=== PATIENT | male | born 1985 | race Hispanic/Latino ===

== ENCOUNTER 2019-06-08 18:52 | Emergency (ER) | payer SELFPAY ==
[2019-06-09] MEDS ORDERED: IBUPROFEN 600 MG TAB PO ONE (01:13)
--- NOTE | 2019-06-09 01:26 | Emergency Department Report ---
ED ENT HPI - General Chief complaint: Sore Throat Stated complaint: THROAT PAIN/JAW PAIN Time Seen by Provider: 06/09/19 01:12 Source: patient Mode of arrival: Ambulatory Limitations: No Limitations - History of Present Illness Initial comments: 34-year-old male presents to the emergency room for throat pain and jaw pain since . Patient reports that he feels like he has swelling to his right tonsil. Patient also reports he knows he has a bad tooth in his right jaw. Patient reports the pain 6 out of 10. MD complaint: tooth pain Onset/Timin -: days(s) Location: tooth # (32) Severity scale (0 -10): 6 Quality: aching, sharp Consistency: constant Improves with: none Worsens with: movement Context- Dental: history of dental caries, poor dental care - Related Data Previous Rx's Medication Instructions Recorded Last Taken Type Clindamycin [Clindamycin CAP] 300 mg PO Q8H #30 cap 06/09/19 Unknown Rx Ibuprofen [Motrin 600 MG tab] 600 mg PO Q8H PRN #30 tablet 06/09/19 Unknown Rx Allergies Allergy/AdvReac Type Severity Reaction Status Date / Time No Known Allergies Allergy Unverified 06/09/19 01:13 ED Dental HPI - General Chief complaint: Sore Throat Stated complaint: THROAT PAIN/JAW PAIN Time Seen by Provider: 06/09/19 01:12 Source: patient Mode of arrival: Ambulatory Limitations: No Limitations - Related Data Previous Rx's Medication Instructions Recorded Last Taken Type Clindamycin [Clindamycin CAP] 300 mg PO Q8H #30 cap 06/09/19 Unknown Rx Ibuprofen [Motrin 600 MG tab] 600 mg PO Q8H PRN #30 tablet 06/09/19 Unknown Rx Allergies Allergy/AdvReac Type Severity Reaction Status Date / Time No Known Allergies Allergy Unverified 06/09/19 01:13 ED Review of Systems ROS: Stated complaint: THROAT PAIN/JAW PAIN Other details as noted in HPI ED Past Medical Hx - Past Medical History Previous Medical History?: No - Surgical History Past Surgical History?: No - Social History Smoking Status: Current Every Day Smoker Substance Use Type: None - Medications Home Medications: Home Medications Medication Instructions Recorded Confirmed Last Taken Type Clindamycin [Clindamycin CAP] 300 mg PO Q8H #30 cap 06/09/19 Unknown Rx Ibuprofen [Motrin 600 MG tab] 600 mg PO Q8H PRN #30 tablet 06/09/19 Unknown Rx ED Physical Exam - General Limitations: No Limitations General appearance: alert, in no apparent distress - Head Head exam: Present: atraumatic, normocephalic - Eye Eye exam: Present: normal appearance - ENT ENT exam: Present: mucous membranes moist - Expanded ENT Exam Expanded Teeth exam: Present: dental caries, fractured tooth # (32) Throat exam: Positive: normal inspection. Negative: tonsillar erythema, tonsillomegaly, tonsillar exudate - Neck Neck exam: Present: lymphadenopathy (right) - Respiratory Respiratory exam: Present: normal lung sounds bilaterally. Absent: respiratory distress - Cardiovascular Cardiovascular Exam: Present: regular rate, normal rhythm. Absent: systolic murmur, diastolic murmur, rubs, gallop - GI/Abdominal GI/Abdominal exam: Present: soft, normal bowel sounds - Neurological Exam Neurological exam: Present: alert, oriented X3, normal gait - Psychiatric Psychiatric exam: Present: normal affect, normal mood - Skin Skin exam: Present: warm, dry, intact, normal color. Absent: rash ED Course Vital Signs 06/08/19 19:36 Temperature 99.6 F Pulse Rate 80 Respiratory 18 Rate Blood Pressure 155/97 O2 Sat by Pulse 97 Oximetry ED Medical Decision Making - Medical Decision Making 34-year-old male presents to the emergency room for throat pain and jaw pain since . Patient reports that he feels like he has swelling to his right tonsil. Patient also reports he knows he has a bad tooth in his right jaw. Patient reports the pain 6 out of 10. Patient placed on clindamycin and ibuprofen. Patient is to follow-up with a dentist. Critical care attestation.: If time is entered above; I have spent that time in minutes in the direct care of this critically ill patient, excluding procedure time. ED Disposition Clinical Impression: Dental abscess Disposition: TO HOME OR SELFCARE Is pt being admited?: No Does the pt Need Aspirin: No Condition: Stable Instructions: Dental Abscess (ED) Prescriptions: Clindamycin [Clindamycin CAP] 300 mg PO Q8H #30 cap Ibuprofen [Motrin 600 MG tab] 600 mg PO Q8H PRN #30 tablet PRN Reason: Pain Referrals: PRIMARY CARE, [Primary Care Provider] - 3-5 Days Sushil P[facility]rez [facility] [Outside] - 3-5 Days Forms: Work/School Release Form(ED)
[2019-06-09 02:21] VITALS: BP 149/98
== END 2019-06-09 02:23 | disposition home or self-care (01) ==
LOC: ED 18:52
DX: K04.7 Periapical abscess without sinus (principal)
CPT/HCPCS: 99282

== ENCOUNTER 2019-07-18 13:11 | Emergency (ER) | payer SELFPAY ==
[2019-07-18] MEDS ORDERED: KETOROLAC 30 MG/1 ML INJ IV ONE (14:36)
[2019-07-18] MEDS ORDERED: oxyCODONE /ACETAMINOPHEN 5-325MG TAB PO ONE (14:36)
[2019-07-18] MEDS ORDERED: dexAMETHasone 20 MG/5 ML VIAL IV ONE (14:36)
[2019-07-18] MEDS ORDERED: SODIUM CHLORIDE 0.9% 1000 ML 1,000 ML IV ONE (14:36)
[2019-07-18] MEDS ORDERED: CLINDAMYCIN 600 MG/50 mL 600 MG/50 ML BAG IV ONE (14:37)
--- NOTE | 2019-07-18 14:39 | Emergency Department Report ---
Chief Complaint: Dental/Oral Stated Complaint: TOOTH ABSCESS Time Seen by Provider: 07/18/19 14:37 - HPI History of Present Illness: 34 y/o male with right mandibular pain swelling, submandibular pain swelling, likely from tooth 29, no stridor no dysphonia + submandibular tenderness ct facial bones to assess for abscess and phlegmon labs pain meds,fluids antibiotics ok for minor care reassess after scans Vital Signs 07/18/19 13:54 Temperature 98.7 F Pulse Rate 97 H Respiratory 16 Rate Blood Pressure 162/104 O2 Sat by Pulse 96 Oximetry - Exam Vital Signs: Vital Signs 07/18/19 13:54 Temperature 98.7 F Pulse Rate 97 H Respiratory 16 Rate Blood Pressure 162/104 O2 Sat by Pulse 96 Oximetry MSE screening note: Focused history and physical exam performed. Due to findings the following was ordered: ED Disposition for MSE Condition: Stable
[2019-07-18 15:24] LABS: Hematocrit 45.6 % (35.5-45.6); Hemoglobin 15.3 gm/dl (11.8-15.2); Mean Corpuscular HGB Conc 34 % (32-34); Mean Corpuscular Volume 90 fl (84-94); Platelet Count 277 K/mm3 (140-440); Red Blood Count 5.07 M/mm3 (3.65-5.03); Red Cell Distribution Width 13.8 % (13.2-15.2)
[2019-07-18 15:43] LABS: INR 0.95 (0.87-1.13)
[2019-07-18 15:48] LABS: BUN/Creatinine Ratio 10; Blood Urea Nitrogen 7 mg/dL (9-20); Calcium 9.6 mg/dL (8.4-10.2); Hemolysis Index 6
--- NOTE | 2019-07-18 17:48 | Cat Scan Report ---
CT NECK WITH CONTRAST HISTORY: Swelling on the right side of face COMPARISON: None. TECHNIQUE: Routine CT of the neck is performed following intravenous contrast. All CT scans at this [facility] emergency department are performed using CT dose reduction for ALARA by means of automated exposure control CONTRAST: 100 mL Omnipaque 300 FINDINGS: Phlegmon is seen in the right side of the face along the buccal surface of the mandible on the right side. Dental caries and root abscesses are seen at 30 to, 31 and 30. 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 Increased soft tissue enhancement is seen in the right sublingual space displacing the right sublingu al gland. In addition, more anteriorly, nonenhancing area measuring 2 cm in the sagittal dimension an d 4 mm in the transverse dimension seen in the right anterior sublingual space. This focal area is ackerman spicious for sublingual space abscess. Skull Base: No significant abnormality. Parotid, Carotid, Retropharyngeal, Prevertebral, Pharyngeal Mucosal, and Manager Package Spaces: No abnorm al mass, enhancing lesion or other significant abnormality. Airway: Patent and without significant abnormality. Lymphatics reactive lymphadenopathy is seen at level 1 and level 2. Vasculature: No significant abnormality. Osseous Structures: No significant abnormality Additional findings: None. IMPRESSION: Phlegmon in the right side of the face along the buccal surface of the right mandible; phlegmon in th e right sublingual space displacing the right sublingual gland; focal area of lower CT attenuation an teriorly in the right sublingual space suspicious for right lingual space abscess Signer Name: Renate Dunlap MD Signed: 07/18/2019 5:43 PM Workstation Name: [id number]
--- NOTE | 2019-07-18 18:03 | Emergency Department Report ---
ED ENT HPI - General Chief complaint: Dental/Oral Stated complaint: TOOTH ABSCESS Time Seen by Provider: 07/18/19 14:37 Source: patient Mode of arrival: Ambulatory Limitations: No Limitations - History of Present Illness Initial comments: This is a 34-year-old male nontoxic, well nourished in appearance, some signs of distress due to pain presents to the ED with c/o of right sided facial swelling and dental pain. Patient denies following up with a dentist. Patient stated is unable to hold secretions and unable to open mouth. Patient describes toothache as aching level of 10 out of 10. Patient denies any numbness, tingling, fever, chills, headache, stiff neck, abdominal pain, chest pain, shortness of breath. Patient denies any drug allergies or significant past medical history. MD complaint: tooth pain -: days(s) Location: tooth # 1 - pain and swelling present Severity: moderate Severity scale (0 -10): 10 Quality: aching Consistency: constant Improves with: none Worsens with: none Context- Dental: history of dental caries, poor dental care Associated Symptoms: gum swelling, toothache. denies: fever, cough, pain with swallowing, sore throat, tinnitus, hearing loss, discharge from ear, rhinorrhea - Related Data Previous Rx's Medication Instructions Recorded Last Taken Type Clindamycin [Clindamycin CAP] 300 mg PO Q8H #30 cap 06/09/19 Unknown Rx Ibuprofen [Motrin 600 MG tab] 600 mg PO Q8H PRN #30 tablet 06/09/19 Unknown Rx Allergies Allergy/AdvReac Type Severity Reaction Status Date / Time No Known Allergies Allergy Unverified 06/09/19 01:13 ED Dental HPI - General Chief complaint: Dental/Oral Stated complaint: TOOTH ABSCESS Time Seen by Provider: 07/18/19 14:37 Source: patient Mode of arrival: Ambulatory Limitations: No Limitations - Related Data Previous Rx's Medication Instructions Recorded Last Taken Type Clindamycin [Clindamycin CAP] 300 mg PO Q8H #30 cap 06/09/19 Unknown Rx Ibuprofen [Motrin 600 MG tab] 600 mg PO Q8H PRN #30 tablet 06/09/19 Unknown Rx Allergies Allergy/AdvReac Type Severity Reaction Status Date / Time No Known Allergies Allergy Unverified 06/09/19 01:13 ED Review of Systems ROS: Stated complaint: TOOTH ABSCESS Other details as noted in HPI Constitutional: denies: chills, fever Eyes: denies: eye pain, eye discharge, vision change ENT: dental pain. denies: ear pain, throat pain Respiratory: denies: cough, shortness of breath, wheezing Cardiovascular: denies: chest pain, palpitations Endocrine: no symptoms reported Gastrointestinal: denies: abdominal pain, nausea, diarrhea Genitourinary: denies: urgency, dysuria Musculoskeletal: denies: back pain, joint swelling, arthralgia Skin: denies: rash, lesions Neurological: denies: headache, weakness, paresthesias Psychiatric: denies: anxiety, depression Hematological/Lymphatic: denies: easy bleeding, easy bruising ED Past Medical Hx - Past Medical History Previous Medical History?: No - Surgical History Past Surgical History?: No - Social History Smoking Status: Current Every Day Smoker Substance Use Type: Alcohol, Marijuana - Medications Home Medications: Home Medications Medication Instructions Recorded Confirmed Last Taken Type Clindamycin [Clindamycin CAP] 300 mg PO Q8H #30 cap 06/09/19 Unknown Rx Ibuprofen [Motrin 600 MG tab] 600 mg PO Q8H PRN #30 tablet 06/09/19 Unknown Rx ED Physical Exam - General Limitations: No Limitations General appearance: alert, in no apparent distress - Head Head exam: Present: atraumatic, normocephalic - Expanded ENT Exam Expanded Ear exam: Present: normal external inspection Mouth exam: Present: trismus. Absent: drooling, muffled voice, tongue normal, tongue elevation, laceration Teeth exam: Present: dental caries, fractured tooth #, dental tenderness #, gingival enlargement, other (dental abscess noted) Throat exam: Positive: normal inspection. Negative: tonsillar erythema, tonsillomegaly, tonsillar exudate, R peritonsillar mass, L peritonsillar mass - Neck Neck exam: Present: normal inspection, full ROM, lymphadenopathy. Absent: tenderness, meningismus - Respiratory Respiratory exam: Present: normal lung sounds bilaterally. Absent: respiratory distress, wheezes, rales, rhonchi, stridor, chest wall tenderness, accessory muscle use, decreased breath sounds, prolonged expiratory - Cardiovascular Cardiovascular Exam: Present: regular rate, normal rhythm, tachycardia, normal heart sounds. Absent: irregular rhythm, systolic murmur, diastolic murmur, rubs, gallop - Extremities Exam Extremities exam: Present: full ROM - Back Exam Back exam: Present: full ROM - Neurological Exam Neurological exam: Present: alert, oriented X3 - Psychiatric Psychiatric exam: Present: normal affect, normal mood - Skin Skin exam: Present: warm, dry, intact, normal color. Absent: rash ED Course Vital Signs 07/18/19 13:54 Temperature 98.7 F Pulse Rate 97 H Respiratory 16 Rate Blood Pressure 162/104 O2 Sat by Pulse 96 Oximetry - Consultations Consultation #1: 07/18/19 18:03 Patient has been consulted with Dr. Sullivan T about patient history, physical e xam, and labs and CT results and agrees for transfer that has appropriate medical care such as oral surgery. Consultation #2: 07/18/19 18:[address] Kasper ([facility]) and stated patient can be transferred to ED at [facility]. Consultation #3: 07/18/19 18:[address] Powell ([facility]) for treatment. ED Medical Decision Making - Lab Data Result diagrams: 07/18/19 15:13 07/18/19 15:13 - Medical Decision Making This is a 34-year-old male that presents with right lingual space abscess and trismus. Patient is stable and was examined by me. Labs obtained. CT with contrast has been obtained and shows abscess. Patient received resuscitation ER as well as clindamycin IV and steroids IV. Patient has been consulted with Dr. Sullivan which she agrees for transfer. Patient consulted with [facility] and accepts patient to services for further evaulation and treatment. At time of transfer, the patient does not seem toxic or ill in appearance. No acute signs of distress noted. Patient agrees to treatment plan of care. No further questions noted by the patient. Critical care attestation.: If time is entered above; I have spent that time in minutes in the direct care of this critically ill patient, excluding procedure time. ED Disposition Clinical Impression: Facial abscess, Dental abscess, Trismus Disposition: [id number] ANOTHER TYPE HLTHCARE Is pt being admited?: No Condition: Stable
[2019-07-18 18:39] VITALS: BP 143/94
== END 2019-07-18 22:21 | disposition other institution (70) ==
LOC: ED 13:11
DX: L02.01 Cutaneous abscess of face (principal); K04.7 Periapical abscess without sinus; R25.2 Cramp and spasm; F17.200 Nicotine dependence, unspecified, uncomplicated; F12.10 Cannabis abuse, uncomplicated; Z79.899 Other long term (current) drug therapy
CPT/HCPCS: 36415; 70487; 80048; 82550; 83735; 85027; 85610; 96365; 96375; 99285; J1100; J1885; J7030; Q9967